=== PATIENT | female | born 1990 | race Caucasian/White ===

== ENCOUNTER 2017-04-29 20:47 | Inpatient (IN) | payer OTHER ==
[~2017-04-29] VITALS: Ht 165.1 cm; Wt 99.8 kg
--- NOTE | ~2017-04-29 | EKG ---
PATIENT: DINORA HODGES UNIT #: [id number] Ventricular Rate: 129 BPM Atrial Rate: 129 BPM P-R Interval: 122 ms QRS Duration: 92 ms Q-T Interval: 296 ms QTC Calculation(Bezet): 433 ms P [place]: 40 degrees Calculated R [place]: 44 degrees Calculated T [place]: 22 degrees Diagnosis Line: Sinus tachycardia Diagnosis Line: Nonspecific ST abnormality Inferior leads Diagnosis Line: Otherwise normal ECG Diagnosis Line: When compared with ECG of 22-DEC-2012 21:45, Diagnosis Line: Vent. rate has increased BY 56 BPM Diagnosis Line: Confirmed by BHAVESH SAMANO MD ([id number]) on 04/30/2017 Diagnosis Line: 7:35:15 PM INTERPRETING MD: SELWYN EDMONDS
--- NOTE | ~2017-04-29 | DS ---
Unit #: [id number] #: [id number] Patient: DINORA HODGES [id number] [address] [address] [id number] I MR#: [id number] NAME: DINORA HODGES. ROOM: 469 Age: 27 Sex: F Admission Date: 04/29/2017 : 1990 Discharge Date: 04/30/2017 Attending Physician: Do Gold M.D. DISCHARGE SUMMARY HOSPITAL COURSE 27 years old female was admitted to the hospital with community-acquired pneumonia and acute pyelonephritis. Patient was treated with IV Levaquin and vancomycin. Patient has responded well to treatment and feels much better and wants to go home. I offered patient to stay one more day until urine cultures are back but she is very adamant to go home. Therefore, we will discharge her home on antibiotics. Patient's BMP is pending from this morning but her WBC was 9.2 and hemoglobin was 11.5 and her platelet count was 233. Patient had a CT scan of chest done which did not reveal any PE or aortic dissection. There is mild left lower lobe and to a lesser degree right lower lobe pneumonia. Patient had patchy enhancement of the kidneys with mild bilateral perinephric fat stranding. Patient's hCG test was negative. RECOMMENDATIONS ON DISCHARGE Patient is stable. Activity as tolerated. MEDICATIONS Medications are: 1. Florastor 250 mg p.o. b.i.d. for one week. 2. Levaquin 750 mg p.o. daily for one week. Patient is advised to call [facility] office in 1-2 days for urine culture results. Patient is advised to follow with primary care physician in 1 week. Smoking cessation education was provided. Dictated by... Trang Coulter TD: 04/30/2017 12:14 JOB #: [id number] Unit #: [id number] #: [id number] Patient: DINORA HODGES DISCHARGE SUMMARY Page 1 of 1 X Do Gold MD X DISCHARGE SUMMARY
--- NOTE | ~2017-04-29 | CT16 ---
[facility] A Service of [facility] & [facility] RADIOLOGY TEXT RESULTS PATIENT: DINORA HODGES LOCATION: [facility] [address] : [birth year] UNIT #: [id number] AGE: [address]: Do Gold MD SEX: F ORDER DR: [id number] [place] [id number] I MR#: [id number] Acc #: [id number] NAME: DINORA HODGES. : 1990 SEX: F STUDY DATE/TIME: 04/29/2017 22:08 UNIT: SEDOF ROOM: C29210 STUDY DESCRIPTION: CT Angio Chest for PE Attending Physician: Bozena Benavides M.D. Ordering Physician: Hank King M.D. MEDICAL IMAGING REPORT This report is preliminary unless electronic signature is present. EXAM Chest CTA 04/29 at 2208 hours INDICATION Fever, body aches, productive cough for the last 5 days. Elevated D-dimer. TECHNIQUE Axial images were obtained through the chest following IV contrast administration. 3-D reformats were obtained. No comparison chest CT. This CT examination was performed with one or more of the following radiation dose reduction techniques: automatic exposure control, adjustment of mA and/or kV according to patient size, and iterative reconstruction. FINDINGS No pulmonary embolism or aortic dissection is seen. There is no pleural or pericardial effusion. There is no adenopathy. There is some mild tree-in-bud infiltrate in the left lower lobe and to a lesser degree in the medial aspect of the right lower lobe. This is compatible with pneumonia. Continuation through the upper abdomen shows patchy enhancement in the kidneys. This is worrisome for pyelonephritis. There is some subtle bilateral perinephric fat stranding as well. Correlation with urinalysis results is recommended. Patient is status post cholecystectomy. IMPRESSION 1. No PE or aortic dissection. 2. Mild left lower lobe and to a lesser degree right lower lobe pneumonia. 3. Patchy enhancement of the kidneys with mild bilateral perinephric fat stranding. This presumably reflects pyelonephritis in a patient of this age. Correlate with urinalysis results. STS. [facility] A Service of [facility] & [facility] RADIOLOGY TEXT RESULTS PATIENT: DINORA HODGES LOCATION: [place] [address] : [birth year] UNIT #: [id number] AGE: [address]: Do Gold MD SEX: F ORDER DR: Dictated by... Diego Jacobo Jr., M.D. THIS IS AN ELECTRONICALLY VERIFIED REPORT Diego Jacobo Jr., M.D. at 04/30/2017 8:31 PM YVES/isaac TD: 04/30/2017 11:19 JOB #: [id number] MEDICAL IMAGING REPORT Page 1 of 1
--- NOTE | ~2017-04-29 | HP ---
Unit #: [id number] #: [id number] Patient: DINORA HODGES [id number] [address] [address] [id number] I MR#: [id number] NAME: DINORA HODGES. ROOM: 469 Age: 27 Sex: F Admission Date: 04/29/2017 : 1990 Attending Physician: Do Gold M.D. HISTORY AND PHYSICAL CHIEF COMPLAINT Community-acquired pneumonia and pyelonephritis. HISTORY This pleasant 27-year-old female with asthma was transferred from [facility] Emergency Department for community-acquired pneumonia and pyelonephritis. The patient states that she was well until five days prior to admission when she developed myalgias, fever, mid right abdominal discomfort, mild wheezing. Notes a mild cough productive of green sputum with the above along with dysuria and polyuria. When she presented to [facility] ER last evening, she had a temperature of 100.1. CT scan was ultimately performed showing left greater than right lower lobe pneumonia along with pyelonephritis. Patient has significant pyuria. She has a urine tox screen positive for opiates and amphetamines. She states that she does take pain pills illicitly but denies injectable drug use. At [facility] ER, she was treated with DuoNeb, Motrin, IV fluids, vancomycin, Levaquin, and potassium for a potassium level of 2.7. PAST MEDICAL HISTORY 1. Asthma. 2. D and C. 3. Cholecystectomy. ALLERGIES None. HOME MEDICATIONS 1. Mirena ring. 2. P.r.n. Ventolin. FAMILY HISTORY Negative for heart or lung disease. SOCIAL HISTORY The patient lives with her parents and two children. She smokes one pack per day of tobacco. Denies any possibility of . Does not drink alcohol. Does take pain pills illicitly but denies injectable drug use. REVIEW OF SYSTEMS Notable for dysuria, right-sided abdominal discomfort, fevers, myalgia, wheezing, productive cough, asthma, above-mentioned surgeries, tobacco use. All other systems reviewed and otherwise negative. Unit #: [id number] #: [id number] Patient: DINORA HODGES PHYSICAL EXAMINATION GENERAL: Pleasant, moderately obese, 27-year-old female currently in no acute distress. VITAL SIGNS: Temperature 100.1, pulse 128, respirations 20, blood pressure 134/76, O2 saturations 100% on room air. HEENT: Eyes PERRLA. Extraocular muscles are intact. Pharynx is benign. NECK: Supple without adenopathy or thyromegaly. CHEST: Minor expiratory wheeze. CARDIAC: Normal S1, S2 without murmur. ABDOMEN: Bowel sounds are present. No hepatosplenomegaly, tenderness, or masses. BACK: Without CVA tenderness. EXTREMITIES: Without C, C, or E. Pedal pulses are present. Nail greek is present. No track coon. NEUROLOGIC: Patient is awake, alert, oriented. Cranial nerves are intact. Equal strength throughout. DIAGNOSTIC STUDIES LABORATORY: Hematocrit 37.3, white blood count is 14.3, normal platelet count. Elevated D-dimer. SMA12: Glucose 111, sodium 130, potassium 2.7, chloride 93, calcium 8.1. Albumin 3.2. Normal lipase and CPK. Lactic acid normal. Cardiac markers negative. Urine tox screen positive for amphetamines and opiates. Urinalysis: Positive leukocyte esterase, nitrites, protein, blood with 5-10 red cells, 25-50 white cells, 1+ bacteria. IMAGING: CT scan of the chest negative for PE, left greater than right lower lobe pneumonia, perinephric stranding. ASSESSMENT 1. Community-acquired pneumonia. 2. Pyelonephritis. 3. Asthma with mild exacerbation. 4. Hyponatremia and hypokalemia. 5. History of polysubstance abuse but no injectable drugs. 6. Tobacco abuse. 7. Mirena ring in place. PLAN 1. Vancomycin and Levaquin pending cultures, then (1) antibiotics. Will give Florastor as well. 2. Albuterol Mini nebs and mucolytics. 3. DVT prophylaxis. 4. Replace potassium. Magnesium was normal. 5. Check HIV status. 6. IV fluids and supportive treatment. Dictated by Trang Curry/milind TD: 04/30/2017 09:13 JOB #: [id number] Unit #: [id number] #: [id number] Patient: DINORA HODGES HISTORY AND PHYSICAL Page 1 of 1 X Bozena Benavides MD HISTORY AND PHYSICAL
[~2017-04-29 20:47] MED LIST: ACETAMINOPHEN; ALBUTEROL17 GM; ALBUTEROL17 GM INH; ALLERGY RELIEF10 M3 PO; AMOXICILLIN PO; AMOXICILLIN500 M1; AURALGAN EAR DR14 ML AS; BACTRIM DS TABL1 TAB PO; CIPRO PO; COLACE PO; FLEXERIL10 MG PO; IBUPROFEN PO; IBUPROFEN800 MG PO; KEFLEX PO; LORTAB 5/500 TA1 TA1 PO; MACROBID100 MG PO; NIFEREX-150150 MG PO; NO MEDICATIONS; ORUDIS75 M1 PO; PEPCID PO; PHENERGAN25 MG PO; PRENATAL VITAMI1 TA3 PO; PROTONIX PO; VICODIN 5/500 T1 TAB PO; VOLTAREN75 MG PO; ZITHROMAX PO; ZOFRAN PO
[2017-04-29 21:23] LABS: URINE SOURCE CLEAN CATCH
[2017-04-29 21:24] LABS: BASOPHIL# 0.1 X10e3 (0-0.3); BASOPHIL% 0.4 % (0-2.5); EOSINOPHIL% 0.2 % (0.0-7.0); HEMATOCRIT 37.3 % (35.0-45.0); HEMOGLOBIN 12.8 gm/dL (12.0-16.0); LYMPHOCYTE# 2.8 X10e3 (1.0-3.5); LYMPHOCYTE% 19.7 % (17.0-45.0); MEAN CELL VOLUME 83.7 FL (83-96); MEAN CORPUSCULAR HEMOGLOBIN 28.8 PG (28-34); MEAN CORPUSCULAR HGB CONC 34.4 g/dL (30-36); MEAN PLATELET VOLUME 7.5 FL (6.5-11.5); MONOCYTE# 1.7 X10e3 (0-1.0); MONOCYTE% 12.1 % (3.0-12.0); NEUTROPHIL# 9.7 X10e3 (1.5-7.1); NEUTROPHIL% 67.6 % (40-75); PLATELET COUNT 276 X10e3 (140-420); RED BLOOD COUNT 4.45 X10e (3.90-5.30); WHITE BLOOD COUNT 14.3 X10e3 (4.0-10.5)
[2017-04-29 21:25] LABS: DIFF IND NO
[2017-04-29 21:25] LABS: URINE APPEARANCE HAZY; URINE BILIRUBIN NEG (NEG); URINE BLOOD 1+ (NEG); URINE COLOR YELLOW; URINE GLUCOSE NEG (NORM); URINE KETONE NEG (NEG); URINE LEUKOCYTE ESTERASE 3+ (NEG); URINE NITRATE POS (NEG); URINE PROTEIN 1+ (NEG); URINE UROBILINOGEN >=8.0 MG/DL (NORM)
[2017-04-29 21:27] LABS: MICRO INDICATED? YES
[2017-04-29 21:28] LABS: CULTURE INDICATED? YES; URINE BACTERIA 1+ (NEG); URINE SQUAMOUS EPITHELIAL CELL OCCAS /[HPF]; URINE WBC 25-50 /[HPF] (0-5)
[2017-04-29 21:35] LABS: AMPHETAMINE POS (NEG); BARBITURATES NEG (NEG); BENZODIAZEPINES NEG (NEG); COCAINE NEG (NEG); MARIJUANA NEG (NEG); OPIATES POS (NEG); TRICYCLIC ANTIDEPRESSANTS NEG (NEG); U METHADONE NEG (NEG)
[2017-04-29 21:46] LABS: ALBUMIN SERUM 3.2 g/dL (3.5-5.0); BILIRUBIN, DIRECT 0.2 mg/dL (0.0-0.2); BILIRUBIN,INDIRECT 0.3 mg/dL (0.0-0.9); BILIRUBIN,TOTAL 0.5 mg/dL (0.2-2.0); BUN/CREATININE RATIO 7.14; CALCIUM SERUM 8.1 mg/dL (8.4-10.2); CREATININE SERUM 0.7 mg/dL (0.6-1.4); GLOM FILT RATE Estimated 118.7 mL/min (>60); PROTEIN TOTAL SERUM 7.8 g/dL (6.0-8.3)
[2017-04-29 21:47] LABS: POTASSIUM 2.7 mmol/L (3.5-5.1)
[2017-04-29 22:22] LABS: POC - CKMB <1.0 ng/mL (0.0-7.9); POC - MYOGLOBIN 48.7 ng/mL (0.0-169.0)
[2017-04-29 22:23] LABS: POC - TROPONIN <0.05 ng/mL (<=0.05)
[2017-04-30 11:08] LABS: BASOPHIL% 0.3 % (0-2.5); EOSINOPHIL# 0.1 X10e3 (0-0.7); EOSINOPHIL% 0.8 % (0.0-7.0); HEMATOCRIT 33.5 % (35.0-45.0); HEMOGLOBIN 11.5 gm/dL (12.0-16.0); LYMPHOCYTE# 1.5 X10e3 (1.0-3.5); LYMPHOCYTE% 16.3 % (17.0-45.0); MEAN CELL VOLUME 83.8 FL (83-96); MEAN CORPUSCULAR HEMOGLOBIN 28.9 PG (28-34); MEAN CORPUSCULAR HGB CONC 34.5 g/dL (30-36); MEAN PLATELET VOLUME 7.1 FL (6.5-11.5); MONOCYTE# 0.9 X10e3 (0-1.0); MONOCYTE% 10.3 % (3.0-12.0); NEUTROPHIL# 6.7 X10e3 (1.5-7.1); NEUTROPHIL% 72.3 % (40-75); PLATELET COUNT 233 X10e3 (140-420); RED BLOOD COUNT 3.99 X10e (3.90-5.30); RED CELL DISTRIBUTION WIDTH 12.6 % (11.0-15.5); WHITE BLOOD COUNT 9.2 X10e3 (4.0-10.5)
[2017-04-30 11:09] LABS: DIFF IND NO
[2017-04-30 11:32] LABS: BUN/CREATININE RATIO 8.33; CALCIUM SERUM 7.9 mg/dL (8.4-10.2); CREATININE SERUM 0.6 mg/dL (0.6-1.4); GLOM FILT RATE Estimated 124.9 mL/min (>60); POTASSIUM 3.8 mmol/L (3.5-5.1)
[2017-04-30] MEDS ORDERED: LEVAQUIN750 MG PO (12:23)
[2017-04-30] MEDS ORDERED: ACETAMINOPHEN PO (12:24)
[2017-04-30] MEDS ORDERED: PROBIOTIC250 MG PO (12:25)
== END 2017-04-30 13:46 | disposition home or self-care (01) | DRG 194 ==
LOC: SED 20:47 → SEDOF 23:42 → C4C 04-30 02:38
PROVIDERS: Emergency Medicine; Internal Medicine
PROC: B32TYZZ Computerized Tomography (CT Scan) of Left Pulmonary Artery using Other Contrast (ICD-10-PCS; principal; 2017-04-29)
PROC: B32SYZZ Computerized Tomography (CT Scan) of Right Pulmonary Artery using Other Contrast (ICD-10-PCS; 2017-04-29)
DX: J18.9 Pneumonia, unspecified organism (principal); N10 Acute pyelonephritis; J45.901 Unspecified asthma with (acute) exacerbation; E87.1 Hypo-osmolality and hyponatremia; E87.6 Hypokalemia; F17.200 Nicotine dependence, unspecified, uncomplicated; Z90.49 Acquired absence of other specified parts of digestive tract
CPT/HCPCS: 36415; 71275; 80048; 80076; 80307; 81003; 82550; 82553; 83605; 83690; 83735; 83874; 84484; 84703; 85025; 85379; 87086; 87088; 87186; 87806; 93005; 94640; 96361; 96365; 96366; 96368; 99284; J1650; J1956; J3370; Q9967